=== PATIENT | male | born 1980 | race Caucasian/White ===

== ENCOUNTER 2017-08-15 11:58 | Inpatient (IN) | payer OTHER ==
[~2017-08-15] VITALS: Ht 182.8 cm; Wt 89.1 kg
[2017-08-15 12:03] VITALS: BP 119/81
[2017-08-15 12:05] VITALS: BP 119/81
[2017-08-15 12:22] LABS: BASO % 0.1 % (0.0-1.0); EOS % 0.5 % (1.0-4.0); HEMATOCRIT 46.7 % (42.0-52.0); HEMOGLOBIN 15.7 g/dl (14.0-18.0); LYMPH # 1.4 10*3/uL (1.3-4.4); LYMPH % 16.7 % (27.0-41.0); MEAN CELL VOLUME 85.7 fl (80.0-94.0); MEAN CORPUSCULAR HGB 28.8 pg (27.0-31.0); MEAN CORPUSCULAR HGB CONC 33.6 g/dl (33.0-37.0); MEAN PLATELET VOLUME 9.9 fl (9.6-12.3); MONO # 0.6 10*3/uL (0.1-1.0); NEUT # 6.5 10*3/uL (2.3-7.9); NEUT % 75.5 % (47.0-73.0); PLATELET COUNT AUTOMATED 242 10*3/uL (130-400); RED BLOOD COUNT 5.45 10*6/uL (4.50-5.90); RED CELL DISTRI WIDTH 12.6 % (0-14.5); WHITE BLOOD COUNT 8.6 10*3/uL (4.8-10.8)
[2017-08-15 12:43] LABS: ALBUMIN 3.8 gm/dl (3.1-4.5); ALKALINE PHOSPHATASE 107 U/L (45-117); BUN 12 mg/dl (7-24); CHLORIDE 104 mmol/L (98-107); CREATININE 0.78 mg/dL (0.70-1.30); POTASSIUM 3.9 mmol/L (3.5-5.1); SGOT/AST 20 IU/L (3-35); SGPT/ALT 32 U/L (12-78); SODIUM 139 mmol/L (136-145); TOTAL PROTEIN 8.3 gm/dL (6.4-8.2)
[2017-08-15 12:44] LABS: ETHYL ALCOHOL < 3.0 mg/dl (<3)
[2017-08-15 12:45] LABS: ACETAMINOPHEN (TYLENOL) < 2.0 ug/ml (10-30)
[2017-08-15 13:00] LABS: BILIRUBIN NEGATIVE (NEGATIVE); BLOOD NEGATIVE (NEGATIVE); CLARITY CLEAR (CLEAR); COLOR YELLOW (YELLOW); GLUCOSE NEGATIVE (NEGATIVE); KETONE NEGATIVE (NEGATIVE); LEUKO ESTERASE NEGATIVE (NEGATIVE); NITRITE NEGATIVE (NEGATIVE); PH 8.5 (5.0-9.0); SPECIFIC GRAVITY 1.015 (1.005-1.030); UROBILINOGEN 0.2 E.U./dl (0.2-1.0)
[2017-08-15 13:06] LABS: URINE AMPHETAMINES < 1000 (1000ng/ml); URINE BARBITURATES < 200 (200ng/ml); URINE BENZODIAZEPINES < 200 (200ng/ml); URINE CANNABINOIDS (THC) < 50 (50ng/ml); URINE COCAINE > 300 (300ng/ml); URINE METHADONE < 300 (300ng/ml); URINE OPIATES > 300 (300ng/ml)
[2017-08-15 13:08] LABS: URINE PHENCYCLIDINE < 25 (25ng/ml)
[2017-08-15 13:20] LABS: WBC 0-2 wbc/hpf (0-5)
[2017-08-15 13:47] VITALS: BP 118/72
[2017-08-15 14:16] LABS: INTERNATIONAL NORM RATIO 0.9 (2.0-3.5)
[2017-08-15 16:00] VITALS: BP 106/64
[2017-08-15 20:00] VITALS: BP 119/78
[2017-08-16] VITALS: BP 89/45
[2017-08-16 08:00] VITALS: BP 120/71
[2017-08-16 12:00] VITALS: BP 112/59
[2017-08-16 16:50] VITALS: BP 122/75
[2017-08-16 20:26] VITALS: BP 110/63
[2017-08-17] VITALS: BP 86/46
[2017-08-17 08:00] VITALS: BP 129/64
[2017-08-17 12:00] VITALS: BP 122/67
[2017-08-17 16:00] VITALS: BP 128/66
[2017-08-17 20:00] VITALS: BP 152/96
[2017-08-18 00:32] VITALS: BP 104/50
[2017-08-18 06:57] LABS: BASO % 0.6 % (0.0-1.0); EOS # 0.1 10*3/uL (0.0-0.4); EOS % 1.6 % (1.0-4.0); HEMATOCRIT 47.4 % (42.0-52.0); HEMOGLOBIN 15.4 g/dl (14.0-18.0); LYMPH # 3.3 10*3/uL (1.3-4.4); LYMPH % 47.7 % (27.0-41.0); MEAN CELL VOLUME 88.3 fl (80.0-94.0); MEAN CORPUSCULAR HGB 28.7 pg (27.0-31.0); MEAN CORPUSCULAR HGB CONC 32.5 g/dl (33.0-37.0); MEAN PLATELET VOLUME 10.9 fl (9.6-12.3); MONO # 0.6 10*3/uL (0.1-1.0); MONO % 8.5 % (3.0-9.0); NEUT # 2.8 10*3/uL (2.3-7.9); NEUT % 41.2 % (47.0-73.0); PLATELET COUNT AUTOMATED 185 10*3/uL (130-400); RED BLOOD COUNT 5.37 10*6/uL (4.50-5.90); RED CELL DISTRI WIDTH 12.8 % (0-14.5); WHITE BLOOD COUNT 6.8 10*3/uL (4.8-10.8)
[2017-08-18 07:05] LABS: CREATININE 0.71 mg/dL (0.70-1.30)
[2017-08-18 08:00] VITALS: BP 120/62
== END 2017-08-18 12:24 | disposition left against medical advice (07) | DRG 894 ==
LOC: ED 11:58 → EDHOLD 13:20 → 4E 13:20 → EDHOLD 13:51 → 4E 13:56
PROVIDERS: Emergency Medicine; Family Medicine; Nurse Practitioner Family
DX: F11.23 Opioid dependence with withdrawal (principal); F22 Delusional disorders; F41.9 Anxiety disorder, unspecified; D72.810 Lymphocytopenia; F13.10 Sedative, hypnotic or anxiolytic abuse, uncomplicated; F31.9 Bipolar disorder, unspecified; F40.00 Agoraphobia, unspecified; F40.10 Social phobia, unspecified; F43.10 Post-traumatic stress disorder, unspecified; F14.10 Cocaine abuse, uncomplicated; Z72.0 Tobacco use; Z78.9 Other specified health status; Z80.1 Family history of malignant neoplasm of trachea, bronchus and lung; Z84.89 Family history of other specified conditions

== ENCOUNTER 2019-05-06 04:00 | Emergency (ER) | payer OTHER ==
[~2019-05-06] VITALS: Ht 182.8 cm; Wt 97.5 kg
== END 2019-05-06 05:45 | disposition left against medical advice (07) ==
LOC: ED 04:00
DX: F11.23 Opioid dependence with withdrawal (principal); R44.0 Auditory hallucinations; F41.0 Panic disorder [episodic paroxysmal anxiety]; F41.9 Anxiety disorder, unspecified; F14.10 Cocaine abuse, uncomplicated; F12.10 Cannabis abuse, uncomplicated; F17.210 Nicotine dependence, cigarettes, uncomplicated; Y90.9 Presence of alcohol in blood, level not specified